=== PATIENT | male | born 1945 | race Caucasian/White ===

== ENCOUNTER 2017-02-22 02:38 | Inpatient (IN) | payer MEDICARE, OTHER ==
[2017-02-22] MEDS ORDERED: Aspirin Low Dose CHEW TAB* 81 MG PO ONE (03:02)
[2017-02-22 03:20] LABS: Hematocrit 37 % (42-52); Hemoglobin 12.1 g/dl (14.0-18.0); Mean Corpuscular HGB Conc 33 g/dl (31-36); Mean Corpuscular Hemoglobin 29 pg (27-31); Mean Corpuscular Volume 87 fL (80-94); Mean Platelet Volume 8 um3 (7.4-10.4); Red Blood Count 4.21 10^6/ul (4.0-5.4); Red Cell Distribution Width 14 % (10.5-15); White Blood Count 9.9 10^3/ul (3.5-10.8)
[2017-02-22] MEDS ORDERED: NS 0.9% 1000 ML*IV.FLUID IV ONE (03:33)
[2017-02-22 03:35] LABS: Albumin 4.4 g/dL (3.2-5.2); BUN/Creatinine Ratio 21.8 (8-20); Calcium 9.1 mg/dL (8.6-10.3); EGFR African American 56.5 (>60); Globulin 2.6 g/dL (2-4); Potassium 4.6 mmol/L (3.5-5.0); Total Bilirubin 0.5 mg/dL (0.2-1.0)
[2017-02-22 03:43] LABS: Troponin I 47.56 ng/mL (<0.04)
[2017-02-22] MEDS ORDERED: Nitroglycerin TAB 0.4 MG* 0.4 MG TAB SL ONE (04:01)
[2017-02-22] MEDS ORDERED: Heparin DRIP 25,000 UNITS(*) 25,000 UNITS/500 ML BAG IVPB SCH (04:15)
[2017-02-22] MEDS ORDERED: Heparin VIAL(*) 5000 UNITS/ML VIAL (FIVE THOUSAND) IV SCH (05:00)
[2017-02-22 06:16] LABS: HDL Cholesterol 28.5 mg/dL
[2017-02-22 06:22] LABS: Troponin I 37.24 ng/mL (<0.04)
--- NOTE | 2017-02-22 07:58 | RAD ---
INDICATION: Chest pain. COMPARISON: There are no prior studies available for comparison. TECHNIQUE: Dual-energy PA and lateral views of the chest were obtained. FINDINGS: The heart is within normal limits in size. Mediastinal and hilar contours appear within normal limits. The lungs are clear. No pleural effusion or pneumothorax is seen. IMPRESSION: NO EVIDENCE FOR ACTIVE CARDIOPULMONARY DISEASE.
--- NOTE | 2017-02-22 08:47 | HP ---
CC: Dr. Margie Rios * HISTORY AND PHYSICAL: DATE OF ADMISSION: 02/22/17 CHIEF COMPLAINT: Chest discomfort. HISTORY OF PRESENT ILLNESS: Patient is a 69-year-old gentleman who normally goes biking with a group, and has no issues. However, this morning while he was cycling, although he usually trails the rest of the group, he was trailing even farther behind. He felt like he wasn't "up to snuff this morning." He felt weaker. He did not have chest pain at the time or shortness of breath. However, later on in the afternoon he started developing chest discomfort. It was in the center of his chest. It did not radiate. It was only 2 to 3 out of 10 in severity. It was mild. But then he tried to go to sleep, but he wasn't unable to. The pain did not radiate. He had no shortness of breath, no palpitations. No nausea or vomiting, and no sweating. It was also different from the heart attack he had about 24 years ago. Furthermore, it should be noted he had a stress test in May 2016, which was apparently unremarkable. He did not require a stent. Because he could not sleep and he became concerned because of how he functioned during the bicycle race, he went to the ER for evaluation. There, he was found to have an elevated troponin of 47.56. PAST MEDICAL HISTORY: As per the patient of heart attack back 24 years ago, hypertension, and hyperlipidemia. ALLERGIES: He has an allergy/adverse reaction to PENICILLIN. MEDICATIONS: His current medications; 1. Lisinopril 5 mg daily. 2. Atorvastatin 10 mg daily. 3. Atenolol 25 mg in the morning, 12.5 in the evening. 4. Aspirin 81 mg daily. FAMILY HISTORY: Reviewed noncontributory. SOCIAL HISTORY: No tobacco. Rare alcohol. No recreational drug use. He is retired [employer]. He is . He has two children. His , Bonita Childers, is his healthy care proxy. REVIEW OF SYSTEMS: A 14 point review of system was completed with patient. All pertinent positive and negatives are in the history of present illness, otherwise negative. PHYSICAL EXAMINATION GENERAL: Pleasant gentleman, lying in bed in acute distress. VITAL SIGNS: Blood pressure 95/43, respiratory rate 17 breaths per minute, heart rate 53 beats per minute, oxygen saturation 98% on room air, temperature 97.7 degrees. HEENT: Normocephalic and atraumatic. Pupils are equal, round, and reactive to light. Moist mucous membranes. NECK: Supple. No JVD, bruits, palpable thyroid, or lymphadenopathy. CHEST: Clear to auscultation and percussion bilaterally. CARDIOVASCULAR: S1, S2 appreciated. Regular rate and rhythm. ABDOMINAL: Positive bowel sounds in all 4 quadrants. Soft, nontender, and nondistended. EXTREMITIES: No cyanosis, clubbing, or edema. +2 pulses bilaterally. NEURO: Alert and oriented x3. Move all extremities. SKIN: No rashes or abnormalities. DIAGNOSTIC STUDIES/LAB DATA: White count 9.9, hemoglobin 12.1, hematocrit 37, platelets 158. Sodium 136, potassium 4.6, chloride 105, CO2 23, BUN 34, creatinine 1.56, glucose 105. Troponin 47.56, AST 169, ALT 36, APTT 31.3. EKG shows normal sinus rhythm, saturated cardiac 53 beats per minute, normal axis, ST depressions in V3 through V6, I and AVL. Chest x-ray - preliminary report pending. ASSESSMENT AND PLAN: 1. Non-STEMI. We will place patient on heparin drip. Continue atenolol, aspirin daily, and increase statin to 80 mg daily. Cardiology consult. Will likely benefit from cardiac cath. Order transthoracic echo. 2. FEN. N.p.o. possible cath later. 3. DVT prophylaxis. He is on heparin drip. 4. The patient is a full code. TIME SPENT: Over 75 minutes were spent on this H and P, more than 40 minutes of which were spent in direct [id number] contact with the patient in evaluation, physical exam, counseling, and coordination of care. [id number]/CPS #: [id number] MTDD
[2017-02-22] MEDS ORDERED: Atenolol TAB* 25 MG PO SCH ×2 (09:00→18:00)
[2017-02-22] MEDS ORDERED: Diazepam TAB(*) 5 MG PO ONE (11:15)
[2017-02-22] MEDS ORDERED: diPHENhydraMINE PO* 50 MG PO ONE (11:15)
[2017-02-22] MEDS ORDERED: NS 0.45% 1000 ML BAG* 1,000 ML IV SCH (11:15)
[2017-02-22] MEDS ORDERED: Morphine INJ* 2 MG/ML 1 ML SYRINGE IV PRN (11:29)
--- NOTE | 2017-02-22 12:33 | ECHO ---
Patient: MONTANA SHIELDS [facility] Rec#: [id number] : 1945 Date: 02/22/2017 Age: 71y Height: 177.8 cm / 70.0 in Weight: 71.67 kg / 158.0 lbs Sex: M BSA: 1.89 Room#: ICU 4 Admit Date#: 02/22/2017 Type: Inpatient Referring: Marcelo Eller MD Reading: Pierre Briceño MD Smoking Pipe Liner: Nyasia Jenkins,PACOCS,RDMS CC: Margie Rios MD Transthoracic Echocardiogram Indication: NSTEMI BP: 102/51 HR: 54 Rhythm: Bradycardia Findings History: OH, HTN Technical Comments: The study quality is good. Completed 0940 Left Ventricle: The left ventricular chamber size is mildly dilated. Mild concentric left ventricular hypertrophy is observed. There are multiple regional wall motion abnormalities. The estimated ejection fraction is 35-40%. with inferior posterior wall severe hypokinesis. There is no consistent Doppler evidence of clinically significant diastolic dysfunction. Left Atrium: The left atrium is moderately dilated. Right Ventricle: The right ventricular cavity size is normal. The right ventricular global systolic function is low normal. Right Atrium: The right atrium is mildly dilated. Aortic Valve: The aortic valve is trileaflet. The aortic valve leaflets are mildly thickened. There is aortic annular calcification. There is a trace of aortic regurgitation. There is no evidence of aortic stenosis. Mitral Valve: The mitral valve leaflets appear normal. There is moderate mitral regurgitation. There is no evidence of mitral stenosis. Tricuspid Valve: The tricuspid valve leaflets are normal. There is trace tricuspid regurgitation. Unable to estimate the right ventricular systolic pressure. Pulmonic Valve: The pulmonic valve appears normal. There is trace to mild pulmonic regurgitation. Pericardium: There is no significant pericardial effusion. Aorta: The aortic root appears normal. There is mild dilatation of the aortic arch. Pulmonary Artery: The main pulmonary artery appears normal. Venous: The inferior vena cava appears normal in size. There is an approximate 50% respiratory change in the inferior vena cava dimension. Summary: There was not any prior study for comparison. Conclusions The left ventricular chamber size is mildly dilated. Mild concentric left ventricular hypertrophy is observed. The estimated ejection fraction is 35-40%. with inferior posterior wall severe hypokinesis. The left atrium is moderately dilated. The right atrium is mildly dilated. There is a trace of aortic regurgitation. There is moderate mitral regurgitation. There is trace tricuspid regurgitation. There is trace to mild pulmonic regurgitation. There is mild dilatation of the aortic arch. Measurements Name Value Normal Range RVIDd (AP) 2D 3.3 cm (0.9 - 2.6) RVDdMajor (2D) 2.6 cm (2.2 - 4.4) RAd ISD 4CH 5.6 cm (3.4 - 4.9) RA (A4C)W 4 cm (2.9 - 4.6) IVSd (2D) 1.3 cm (0.6 - 1) LVPWd (2D) 0.9 cm (0.6 - 1) LVIDd (2D) 5.7 cm (3.6 - 5.4) LVIDs (2D) 4.8 cm - LV FS (2D) 16 % (25 - 45) Aortic Annulus 2 cm (1.4 - 2.6) Ao root diameter (2D) 3.1 cm (2.1 - 3.5) Ascending Ao 3 cm (2.1 - 3.4) Aortic arch 3.9 cm (1.8 - 3.4) LA dimension (AP) 2D 5.1 cm (2.3 - 3.8) LAd ISD 4CH 6.4 cm (2.9 - 5.3) LA ISD 4CH W 4.2 cm (2.5 - 4.5) Name Value Normal Range LA ESV SP 4CH (A/L) 61.81 ml - LA ESV SP 2CH (A/L) 105.11 ml - LA ESV BP (A/L) 81.45 ml - LA ESV BP (A/L) index 43 ml/m2 - LA ESV SP 4CH (MOD) 56.87 ml - LA ESV SP 2CH (MOD) 99.09 ml - Name Value Normal Range MV E-wave Vmax 0.5 m/sec - MV deceleration time 349 msec - MV A-wave Vmax 0.5 m/sec - MV E:A ratio 1 ratio - P. vein S-wave Vmax 0.5 m/sec - P. vein D-wave Vmax 0.4 m/sec - P. vein S:D Vmax ratio 1.3 ratio - P. vein A-wave duration 104 msec - LV septal e' Vmax 0.05 m/sec - LV lateral e' Vmax 0.6 m/sec - LV E:e' septal ratio 10 ratio - LV E:e' lateral ratio 8.3 ratio - Name Value Normal Range AV Vmax 1.4 m/sec - AV VTI 30 cm - AV peak gradient 8 mmHg - AV mean gradient 3.5 mmHg - LVOT Vmax 1.2 m/sec - LVOT VTI 25 cm - LVOT peak gradient 6 mmHg - LVOT mean gradient 2.8 mmHg - ABISAI Vmax 0.6 m/sec - Name Value Normal Range MR Vmax 4.6 m/sec - MR VTI 157 cm - MR ERO 12 cm2 - MR PISA radius 0.5 cm - MR alias Vmax 36 cm/sec - Name Value Normal Range RAP 8 mmHg - IVC diameter 1.8 cm - Name Value Normal Range PV Vmax 0.7 m/sec - PV peak gradient 2 mmHg -
[2017-02-22] MEDS ORDERED: Lidocaine 1% INJ* 10 MG/ML 30 ML SDV ONE (13:57)
[2017-02-22] MEDS ORDERED: Midazolam* 1 MG/ML 5 ML VIAL (5 MG) ONE (13:57)
[2017-02-22] MEDS ORDERED: Iohexol 350 (CONTRAST) 200 ML MDV IV ONE (13:57)
[2017-02-22] MEDS ORDERED: Heparin 2 UNITS/ML IVPREMIX* 3,000 ML IV ONE (13:57)
[2017-02-22] MEDS ORDERED: fentaNYL* 50 MCG/ML 2 ML VIAL (100 MCG VIAL) ONE (13:57)
[2017-02-22] MEDS ORDERED: Iodixanol* (CONTRAST) 320 MG/ML 100 ML SDV ONE (14:27)
[2017-02-22 16:08] VITALS: BP 94/49
[2017-02-22] MEDS ORDERED: Atorvastatin* 80 MG TAB PO SCH (17:00)
--- NOTE | 2017-02-22 20:29 | CONS ---
CC: Margie Rios MD; Pierre Briceño MD; Dr. Kent * CARDIOLOGY CONSULT: DATE OF CONSULT: 02/22/17 HISTORY OF PRESENT ILLNESS: I was asked by Dr. Margie Rios to see this 71-year - old male patient who does have known history of coronary artery disease, old myocardial infarction in 1992, cardiac catheterization was done at that time at [facility] in [place] with Dr. Buenrostro that showed him to have mild non - obstructive coronary artery disease. The patient had a nuclear Myoview stress test with Cardiology that was done recently relatively that showed him to have his old inferolateral wall myocardial infarction without ischemia. His calculated ejection fraction was 39%. He is active in doing his bicycle exercise activity and apparently yesterday when he got home, he had some episode of symptoms of chest pain but no nausea, no vomiting, no jaw pain, no arm pain, no back pain, no syncope and decided to come to the emergency room. After further evaluation, he had grossly abnormal labs including his troponin which was initially at 3 o'clock in the morning at 47.56. Cardiology was not called . I just was called by Dr. Margie Rios this morning about this patient , and it did go down actually at 5:45 to 37.24. His BNP was 752. His CK 1121. Because of that, cardiology consult is further requested. He is still having one to two episode of mild chest pain. He does have history of hyperlipidemia. He is on atorvastatin as an outpatient. He had no orthopnea, no tachycardia, no palpitations. No history of diabetes mellitus. PAST MEDICAL HISTORY: As outlined above. MEDICATIONS: As an outpatient include: 1. Aspirin 81 mg daily. 2. Atenolol 25 mg in the morning and half in the evening. 3. Lipitor 10 mg daily. ALLERGIES: He had allergy to PENICILLIN. FAMILY HISTORY: His father due to DC. SOCIAL HISTORY: He gives no history of smoking. No significant drinking. No history of illicit drug use. His cardiac cath done in 1992 showed his left circ to be proximally 20%, mid 40% , mild LV dysfunction. His left main, LAD, RCA were normal. REVIEW OF SYSTEMS: His review of all other systems essentially is negative. PHYSICAL EXAMINATION: On exam, he is awake, alert and oriented. He had few mild episodes of chest pain, but he is not in acute distress. Vitals: His blood pressure is 97/46, pulse is 65, he is in sinus rhythm. He is afebrile, 97.6 his temperature. Head and neck exam, normocephalic, atraumatic. Ear, nose , and throat essentially benign. Neck: Supple. JVP is not elevated. No carotid bruits. No masses in the neck is appreciated. Chest is clear to auscultation. No rales, no wheeze. No added sounds appreciated. Heart: Normal, regular, S1, S2. No added sounds. No gallops. No rubs. Abdomen: Benign. Soft, positive bowel sounds. Extremities: No edema. No cyanosis. No clubbing. Skin Exam: Normal. Psych: Normal affect and mood. DROP SHIPMENT CLERK: No focal deficits appreciated. DIAGNOSTIC STUDIES/LAB DATA: His EKG showed him to be in normal sinus rhythm. There is ST depression, T-wave inversions in leads I, aVL as well as V4, V5 and V6. His labs showed the following: Sodium 136, potassium 4.6, chloride 105, total CO2 23, BUN 34, creatinine 1.56. AST 169, ALT 36, CK 1121. Troponin 47.5 and then did go down to 37. BNP 752. Cholesterol 112, triglycerides 49, LDL 74 , HDL 28.5. His chest x-ray. no evidence for active cardiopulmonary disease. IMPRESSION: The patient is a 71-year-old male with: 1. Ruled in for non-ST elevation myocardial infarction. 2. Abnormal EKG as described and abnormal troponin. 3. History of coronary artery disease and myocardial infarction in the past. 4. Cardiomyopathy, ischemic. 5. Hyperlipidemia. PLAN: Based on his continuing symptoms ruled in for non-ST elevation myocardial infarction and known history of coronary artery disease, I discussed with the patient further evaluation for his coronary anatomy by cardiac catheterization. Benefit, risks discussed with the patient and he is willing to proceed. Any further recommendations would be based on the results of his cardiac catheterization. Meanwhile, we will evaluate his echocardiogram that was done today for his left ventricular systolic function and valvular disease. We will continue his beta-poornima, aspirin, and statin medication and will make further recommendation accordingly. I answered all his concerns and questions up to his satisfaction. Thank you very much for asking us to participate in the care of this patient. TIME SPENT: More than half of at least 60 to 65 plus minutes was on the education and counseling mode discussing all of the above, and answering all their concerns and questions up to their satisfaction. [id number]/[facility] #: [id number] LUCY
[2017-02-22 22:40] LABS: Renal Sodium Excretion 0.3 %
--- NOTE | 2017-02-23 12:00 | TRS ---
CC: Hospitalist Service, Dr. Margie Rios, Dr. Briceño, Dr. Kent TRANSFER SUMMARY: DATE OF TRANSFER: 02/22/17 TRANSFER TO: [facility] ACCEPTING DOCTOR: Dr. Parkinson HISTORY OF PRESENT ILLNESS: The patient is a 71-year-old male patient, who does have known history of mild nonobstructive coronary artery disease by cardiac cath done in 1992 at [facility] in [place]. He was admitted today, 02/22/17, with symptoms of chest pain. He ruled in for non-ST e levation myocardial infarction with a peak troponin at 47. He had a nuclear Myoview stress test a f ew months ago that showed no ischemia with an EF of 39%. His echo today showed reduced left ventric ular systolic function with an EF of 35% with severe inferoposterior wall hypokinesis. Because of t he continuing symptoms of chest pain and his significantly abnormal troponin, he was further referre d to the cardiac catheterization to evaluate his coronary anatomy. His cardiac catheterization was done by me today showed him to have a moderate, at least 50% ostial left main disease with severe 80 % distal left main disease and severe multivessel disease of the LAD, left circ and of the right cor onary artery, which was totally occluded in mid with collaterals. LV function was not performed as the patient had a transthoracic echocardiogram today. Based on the findings, the patient will be tr ansferred to [facility] for complete revascularization with coronary artery bypass fred schaffer. I discussed this patient further with Dr. Parkinson at [facility], who kind ly accepted the patient to be transferred today to their intensive care unit. I had a lengthy discu ssion with the patient and his family whom they were available today at bedside about the findings o f the cardiac catheterization and the need for the transfer. I answered all their concerns and ques tions up to their satisfaction. The patient will be transferred via actually ambulance and ACLS pro tocol guidelines. For further more detailed information, please refer to the history and physical n ote from today and also my cardiology consultation from today as well. TIME SPENT: More than half o f at least 40 plus minutes was in the education and counseling mode arrangement for the transfer, di scussing this patient further with the family and Dr. Parkinson and making arrangements for him. Tra nsfer to be done today. [id number]/CPS #: [id number]
--- NOTE | 2017-02-23 12:50 | CATH ---
CC: Margie Rios MD; Dr. Kent; Dr. Briceño; Hospitalist Service. CARDIAC CATHETERIZATION REPORT: DATE OF PROCEDURE: 02/22/17 PROCEDURES: Left cardiac catheterization, selective coronary angiography, left ventriculography. HISTORY: The patient is a 71-year-old male patient with known history of mild nonobstructive coronary artery disease from before, history of old myocardial infarction and reduced left ventricular systolic function about 35%. He was hospitalized with symptoms of chest pain. He was ruled in for a non-ST elevation myocardial infarction with a peaked troponin at 47. He continued to have symptoms of chest pain. He was further referred for a cardiac catheterization to evaluate his coronary anatomy in light of his symptoms and his non-ST elevation myocardial infarction. DESCRIPTION OF PROCEDURE: After informed and written consent had been obtained , the patient was brought into the cardiac catheterization lab where the right femoral region was prepped and draped in the usual sterile fashion. 1% Xylocaine was used for local anesthesia. Next, the right femoral artery was entered and a 6- Macedonian sheath placed into the right femoral artery. Through the right femoral arterial sheath, a 6-Macedonian JL4 catheter was advanced over the arch of the aorta, the left coronary engaged, and left coronary arteriography performed. This catheter was removed and the 6-Macedonian JR4 catheter was advanced over the arch of the aorta, right coronary engaged, and right coronary arteriography performed. At this point, the patient was found to have severe left main disease and multivessel disease and decision was made for future management with complete revascularization with coronary artery bypass grafting. The patient will be transferred to [facility] for CABG and kindly accepted by Dr. Parkinson for today's transfer. Please refer to our full history and physical, Cardiology consult, and transfer note for this patient. HEMODYNAMICS: The central aortic pressure is 105/65 mmHg. Left main coronary artery: The left main coronary artery is a good caliber vessel. It gave rise to left anterior descending artery and circumflex coronary artery. The ostium of the left main has moderate, at least 50% stenosis with damping of the pressure recordings. The distal left main has at least 80% stenosis just immediately before bifurcating into the left anterior descending artery and circumflex coronary artery. Circumflex coronary artery: The circumflex coronary artery is a good caliber vessel. In the proximal segment, it has about 50% noncritical disease in the midsegment. Before it bifurcates in to obtuse marginal, has at least 80% to 90 % stenosis. There is evidence of left to right collaterals. Left anterior descending artery: The left anterior descending artery was not well evaluated given the limited images obtained because of the severe left main disease, but in one of the views, it looks like the midsegment and the distal segment of the LAD without any significant disease. The right coronary artery: The right coronary artery was totally occluded in the proximal to mid segment and has left to right collaterals. Left ventriculography: Left ventriculography was not performed as the patient had a transthoracic echocardiogram today and showed the patient to have moderately at least reduced left ventricular systolic function with EF 35%. CONCLUSION: 1. Severe left main disease as described. 2. Severe multivessel coronary artery disease as described. PLAN: The patient will be transferred to [facility] for complete revascularization via coronary artery bypass grafting. Dr. Parkinson from the cardiothoracic surgery services contacted for transfer for today. [id number]/CPS #: [id number] [facility]ITAL[facility]
== END 2017-02-22 16:00 | disposition short-term general hospital (02) | DRG 282 ==
LOC: ED 02:38 → MEDTELE 05:17 → ICU 08:11
PROVIDERS: ADMIT Internal Medicine; ATTEND Internal Medicine
PROC: B211YZZ Fluoroscopy of Multiple Coronary Arteries using Other Contrast (ICD-10-PCS; 2017-02-22)
PROC: B215YZZ Fluoroscopy of Left Heart using Other Contrast (ICD-10-PCS; 2017-02-22)
PROC: 4A023N7 Measurement of Cardiac Sampling and Pressure, Left Heart, Percutaneous Approach (ICD-10-PCS; principal; 2017-02-22 14:00)
DX: I21.4 Non-ST elevation (NSTEMI) myocardial infarction (principal); I11.9 Hypertensive heart disease without heart failure; I25.119 Atherosclerotic heart disease of native coronary artery with unspecified angina pectoris; E78.5 Hyperlipidemia, unspecified; I25.2 Old myocardial infarction; Z88.0 Allergy status to penicillin; Z79.82 Long term (current) use of aspirin; Z79.899 Other long term (current) drug therapy; Z82.49 Family history of ischemic heart disease and other diseases of the circulatory system; I25.5 Ischemic cardiomyopathy
CPT/HCPCS: 36415; 71020; 80053; 80061; 82550; 82570; 83880; 84300; 84484; 85025; 85730; 87086; 93005; 93306; 93454; A9270-GY; C1887; J1644; J2001; J2250; J3010

== ENCOUNTER 2017-10-03 07:53 | Observation (INO) | payer MEDICARE ==
[2017-10-03] MEDS ORDERED: Diazepam TAB(*) 5 MG ONE (08:25)
[2017-10-03] MEDS ORDERED: ceFAZolin VIAL 1 GM in NS *SYRINGE * * 10 ML ONE (08:30)
[2017-10-03 08:38] LABS: ABS Basophils 0.1 10^3/ul (0-0.2); ABS Eosinophils 0.5 10^3/ul (0-0.6); ABS Lymphocytes 1.8 10^3/ul (1.0-4.8); ABS Monocytes 0.4 10^3/ul (0-0.8); ABS Neutrophils 3.4 10^3/ul (1.5-7.7); ABS Nucleated RBC 0 10^3/ul; Eosinophil % 7.5 % (0-6); Hematocrit 38 % (42-52); Hemoglobin 13.1 g/dl (14.0-18.0); Lymphocyte % 29.5 % (25-47); Mean Corpuscular HGB Conc 35 g/dl (31-36); Mean Corpuscular Hemoglobin 29 pg (27-31); Mean Corpuscular Volume 83 fL (80-94); Mean Platelet Volume 8 um3 (7.4-10.4); Nucleated Red Blood Cells % 0.1; Platelet Count 161 10^3/ul (150-450); Red Blood Count 4.55 10^6/ul (4.0-5.4); Red Cell Distribution Width 14 % (10.5-15); White Blood Count 6.2 10^3/ul (3.5-10.8)
[2017-10-03 08:56] LABS: INR 0.97 (0.77-1.02)
[2017-10-03 08:57] LABS: EGFR Non-African American 47.7 (>60)
[2017-10-03] MEDS ORDERED: Naloxone* 0.4 MG/ML 1 ML VIAL ONE (09:02)
[2017-10-03] MEDS ORDERED: Midazolam* 1 MG/ML 5 ML VIAL (5 MG) ONE (09:02)
[2017-10-03] MEDS ORDERED: fentaNYL* 50 MCG/ML 2 ML VIAL (100 MCG VIAL) ONE (09:02)
[2017-10-03] MEDS ORDERED: Lidocaine 1% INJ* 10 MG/ML 30 ML SDV ONE (09:03)
[2017-10-03] MEDS ORDERED: Flumazenil* 0.1 MG/ML 5 ML MDV ONE (09:03)
[2017-10-03] MEDS ORDERED: Clindamycin 900 MG IVPREMIX(* 900 MG/50 ML SDV IV ONE (10:00)
[2017-10-03] MEDS ORDERED: Acetaminophen TAB* 325 MG PO PRN (10:13)
[2017-10-03] MEDS ORDERED: oxyCODONE/Acetamin 5/325 MG* TAB PO PRN (10:13)
--- NOTE | 2017-10-03 13:38 | RAD ---
Indication: Post ICD implant. Cardiomyopathy. Comparison: February 22, 2017 Technique: Upright AP 1145 hours Report: No focal pulmonary lesion, compelling alveolar consolidation, pleural effusion, pneumothorax. Single lead of newly placed LEFT chest wall pacemaker device extends to the level of the RIGHT ventricle. Cardiomegaly. Unremarkable central pulmonary vasculature and mediastinal contours. Median sternotomy wires and mediastinal vascular clips. IMPRESSION: Negative for pneumothorax or pulmonary edema post ICD placement.
[2017-10-03] MEDS ORDERED: Atorvastatin* 10 MG TAB PO SCH (18:00)
[2017-10-03] MEDS ORDERED: Lisinopril TAB* 5 MG PO SCH (18:00)
[2017-10-03] MEDS ORDERED: Atenolol TAB* 25 MG PO SCH (18:00)
[2017-10-03] MEDS: Atenolol TAB* 25 MG PO SCH (20:12)
--- NOTE | 2017-10-04 07:36 | OP ---
CC: Dr. Xiong OPERATIVE NOTE: DATE OF OPERATION: 10/03/17 ANESTHESIA: Local anesthesia with conscious sedation. PRE-OP DIAGNOSES: Ischemic cardiomyopathy, coronary artery disease. POST-OP DIAGNOSES: Ischemic cardiomyopathy, coronary artery disease. OPERATIVE PROCEDURE: Single-chamber ICD implantation. ESTIMATED BLOOD LOSS: Nil. COMPLICATIONS: None. INDICATIONS: The patient is a 72-year-old gentleman with a history of coronary artery disease, histo ry of a myocardial infarction, history of coronary artery bypass surgery. His most recent echocardio gram showed an ejection fraction of 34%. The patient was recommended for ICD implantation for prevent ion of sudden cardiac arrhythmia . DESCRIPTION OF PROCEDURE: The patient was brought to the procedure room in a fasting state. Informe d consent had been obtained prior to the procedure. All labs have been reviewed. The patient was pl aced supine on the procedure table. His left deltopectoral area was cleaned and draped in usual fashi on. 1% lidocaine was used for local anesthesia. The left axillary artery was entered by a modified Seldinger technique using ultrasound guidance, and a guidewire was placed. A 4 cm incision was made in the pectoral area and blunt dissection was carried down to the pectoral fascia. A pocket was fash ioned for the ICD. Over the guidewire, a 9- Syriac sheath introducer was placed through which a righ t ventricular ICD lead was placed. The ICD lead is a Medtronic model 6935M, serial #[id number]. It had R- wave sensitivity of 18, impedance of 791 ohms, threshold 1 volt at 0.5 msec. The ventricular lead was sutured to the pectoral fascia using 0 silk. The pocket was flushed with normal saline. A generator was attached to the ventricular lead. The generator is a Medtronic model ULQB7I3, serial # [id number]. The device was placed into the pocket. The surgical incision was closed in three layers . The patient was returned to the holding area in stable condition. [id number]/[facility] #: [id number]
[2017-10-04] MEDS: Atenolol TAB* 25 MG PO SCH (08:51)
--- NOTE | 2017-10-04 08:59 | RAD ---
INDICATION: Status post cardiac pacer implantation COMPARISON: Chest x-ray from the previous day gated October 03, 2017 TECHNIQUE: PA and lateral views of the chest were obtained. FINDINGS: Again seen is a left upper chest to lead cardiac pacemaker with surgical skin flaquita over the superior margin. There are sternotomy wires and surgical clips overlying the mediastinum as well. The heart and mediastinum are normal in size and contour. The lungs are grossly clear. There is no pneumothorax. Visualized bones are normal for the patient's age. There is no radiographic evidence of free air beneath the diaphragm IMPRESSION: NO RADIOGRAPHIC EVIDENCE OF ACUTE CARDIOPULMONARY DISEASE STATUS POST LEFT UPPER CHEST CARDIAC PACEMAKER PLACEMENT.
[2017-10-04] MEDS ORDERED: Aspirin Low Dose CHEW TAB* 81 MG PO SCH (09:00)
[2017-10-04 10:19] VITALS: BP 136/88
--- NOTE | 2017-10-05 02:30 | DS ---
CC: Dr. Vikki Xiong DISCHARGE SUMMARY: DATE OF ADMISSION: 10/03/17 DATE OF DISCHARGE: 10/04/17 INDICATIONS FOR ADMISSION: ICD implantation. HISTORY: The patient is a 72-year-old gentleman with a history of ischemic cardiomyopathy, history of coronary artery disease, bypass surgery, ejection fraction of less than 35%. Please see my admission history and physical for details of the patient's history and presentation. The patient was brought to the hospital and underwent a single chamber ICD implantation. He has a [employer] ICD. It is single chamber. The procedure went without difficulty and no complications. The patient was observed overnight. This morning, the patient's ICD was interrogated and it was noted to be functioning normally. His chest x-ray and EKG are unremarkable. DISCHARGE MEDICATIONS: Are the same as the admission except that he will be on Keflex 250 mg 3 times a day for 3 days. DISCHARGE PHYSICAL EXAMINATION: Vital signs are stable. Lungs are clear to auscultation. Cardiac exam, S1 and S2 without any murmurs, rubs or gallops. His ICD site is clean, dry and intact. The dressing was changed. There is no hematoma. There is no erythema. There is no ecchymosis. DISPOSITION: The patient will be discharged home. FOLLOW UP: The patient will see me in follow up in 1 week. [id number]/[facility] #: [id number] MTDOpal
== END 2017-10-04 10:10 | disposition home or self-care (01) ==
LOC: CHICATH 07:53 → ICU 10:13
PROVIDERS: ADMIT Specialist; ATTEND Specialist
DX: I25.5 Ischemic cardiomyopathy (principal); I25.10 Atherosclerotic heart disease of native coronary artery without angina pectoris; Z86.79 Personal history of other diseases of the circulatory system; Z95.1 Presence of aortocoronary bypass graft; I25.2 Old myocardial infarction
CPT/HCPCS: 33262; 36415; 71045; 71046; 80048; 85025; 85610; 85730; 87641; 93005; 99156; 99157; A9270-GY; C1722; C1898; G0378; J0690; J2250; J2310; J3010